=== PATIENT | male | born 1970 | race Caucasian/White ===

== ENCOUNTER 2021-08-11 12:03 | Inpatient (IN) ==
[2021-08-11] MEDS ORDERED: dexAMETHasone**PF** 10 MG/ML VIAL IV ONE (13:11)
[2021-08-11] MEDS ORDERED: HYDROmorphone INJ 1 MG/ML SYRINGE IV STA (13:11)
[2021-08-11] MEDS ORDERED: KETOROLAC 30 MG/ML VIAL IV STA (13:11)
--- NOTE | 2021-08-11 13:18 | Emergency Department Note ---
Impression & Plan Intractable low back pain, Lumbar radiculopathy, Lumbar herniated disc, Spondylolisthesis at L5-S1 level ED Provider Note CHIEF COMPLAINT: Severe low back pain radiating into the right leg x2 months HISTORY OF PRESENT ILLNESS: Patient is a 51-year-old male who presents emergency department for evaluation of radicular low back pain. He has had problems since this summer, things have been markedly worsening however since May. Initially they thought that the pain was related to a hip bursitis, he had an injection with orthopedics which helped slightly, then noted that his symptoms changed. They began to suspect that his pain was related to his back. He had some lumbar spine x-rays done by orthopedics and has been in physical therapy. He did a course of Flexeril and prednisone in early June which gave him no relief. He has also been going to the chiropractor. He finally got an MRI on July 24, which noted a disc bulge at the L5-S1 level and spondylolisthesis of L5 on S1. He was into see orthopedics, physician safety admin assistant with Dr. Gutierres, just this morning, and was told that he needed surgical intervention. Patient is here in severe pain. He notes pain in the bilateral low back, right worse than left and in the right buttock. He has a constant, throbbing pain in his right thigh, and numbness and tingling in his feet, primarily the right. He has a numb sensation into his groin at region and has noted some urinary incontinence. He has not had any stool incontinence. 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 He has tried oxycodone, Cindy, fentanyl lollipops, morphine, Celebrex, Cymbalta and Neurontin all of which he had left over from his prior treatment, which gave him no relief. He also tried a marijuana gummy from a friend. He currently rates his pain an 8/10. He is unable to get comfortable and quite tremulous. REVIEW OF SYSTEMS: Review of systems as per HPI. All other systems reviewed were negative. 10 systems reviewed. PMH: Electronic medical records are reviewed and summarized as above/below. See Problem List. Fully vaccinated against Covid x3. SOCIAL HISTORY: Patient lives at home with his family. Disabled. He does not smoke, uses chewing tobacco. PHYSICAL EXAM: Vital Signs: Reviewed Nurse's notes. CONSTITUTIONAL: Patient is an uncomfortable tremulous 51-year-old male who is awake and alert and in obvious distress due to his stated complaint. There is significant discomfort with position changes. CARDIOVASCULAR: Regular rate and rhythm, with normal S1 and S2, no murmur or gallop or rub is heard. No carotid bruits auscultated. No JVD. Peripheral pulses easily palpable. RESPIRATORY: Breath sounds equal and clear to auscultation without wheezes, rales, or rhonchi heard. Full and equal chest expansion without accessory muscle use or retractions. ABDOMEN: Bowel sounds are present. Abdomen is soft, nontender and nondistended. INTEGUMENTARY: No lesions or rash, normal skin turgor. LYMPH: No lymphadenopathy. SPINE: Examination of the patient's back does not demonstrate any ecchymosis, abrasions or outward signs of trauma. No erythema, increased warmth or induration. Patient has midline discomfort to palpation over the low lumbar spine, and over the PSIS bilaterally. There is no pain over the SI joint or the sciatic notch. He has increased pain with range of motion including rotation and flexion. EXTREMITIES: Leg lengths are symmetrical. Negative logroll bilaterally. Patient has diminished sensation to light touch over the right calf/lower leg, and the right foot. He has weakness with right great toe and ankle dorsiflexion/plantarflexion, 4/5 compared to 5/5 on the left. Negative bilateral straight leg raise testing. Patellar reflexes are 1+ bilaterally. Distal pulses are easily palpable. EMERGENCY DEPARTMENT COURSE: The patient was seen and assessed as above. Old records were reviewed, specifically his prior orthopedic visits and his MRI from 07/24/2021. Pain management was reviewed with the patient. IV lock was initiated. Laboratory studies were collected. I did obtain a Covid swab for possible admission/observation or surgical intervention, this was negative. He was treated with Dilaudid 1 mg IV, Toradol 30 mg IV, Decadron 10 mg IV and Valium 10 mg IV. He was placed on continuous pulse ox monitoring. I did reach out to [facility], and Dr. Gutierres graciously returned my phone call. He is aware of the patient, and has reviewed his MRI. He agrees that the pa myla requires emergent surgical intervention and will admit the patient to his service. This was reviewed with the patient. He was agreeable. Please refer to orthopedic H&P and admission orders for further information. Differential diagnoses entertained included lumbar disc herniation, acute cord compression, cauda equina syndrome, discitis, epidural abscess or hematoma, among others. Past Med/Surg History Medical History CRPS (complex regional pain syndrome) Neck and left upper extremity secondary to crush injury ~20 years ago Surgical History History of cholecystectomy Social History Smoking Status: Never smoker Feels Safe at Home: Yes Allergies Allergies Allergy/AdvReac Type Severity Reaction Status Date / Time No Known Allergies Allergy Verified 08/11/21 15:24 Home Meds Previous Rx's Medication Instructions Recorded cyclobenzaprine 10 mg tablet 10 mg PO TID PRN #15 tab 06/05/21 Results & Data (ED) Vital Signs Vital Signs - 24 hr 08/11/21 12:19 08/11/21 15:11 Temperature 36.5 C Temperature Source Temporal Artery Scan Pulse Rate 114 H 82 Pulse Rate [Right Finger] 83 Pulse Rhythm Regular Regular Pulse Rhythm [Right Finger] Regular Pulse Strength Normal Pulse Strength [Right Finger] Normal Respiratory Rate 20 16 Respiratory Effort / Characteristics Non-Labored Spontaneous Non-Labored Spontaneous Respiratory Depth Normal Normal Respiratory Pattern Regular Regular Blood Pressure 151/107 H Blood Pressure [Left Arm] 124/80 Blood Pressure Mean 121 Blood Pressure Mean [Left Arm] 94 Blood Pressure Position Sitting Blood Pressure Position [Left Arm] Lying Pulse Oximetry 99 96 Oxygen Delivery Method Room Air Room Air Sepsis Recent Fever Within 48 Hours No Sepsis New/Unexplained Change in Mental Status N/A Sepsis Action Taken by Nursing No Action Required Home Medications Current Medication List: was personally reviewed by me Laboratory Data Attestation: I reviewed the patient's lab results. Administered Medications Discontinued Medications Dexamethasone Sodium Phosphate (DexamethasonePf 10 Mg/Ml Vial) 10 mg IV NOW ONE Stop: 08/11/21 13:12 Last Admin: 08/11/21 15:02 Dose: 10 mg Documented by: [id number] Diazepam (Diazepam 5 Mg/Ml Inj 10ml Vial) 10 mg IV NOW STA Stop: 08/11/21 13:12 Last Admin: 08/11/21 15:11 Dose: 10 mg Documented by: [id number] Hydromorphone HCl (Hydromorphone Inj 1 Mg/Ml Syringe) 1 mg IV NOW STA Stop: 08/11/21 13:12 Last Admin: 08/11/21 15:03 Dose: 1 mg Documented by: [id number] Ketorolac Tromethamine (Ketorolac 30 Mg/Ml Vial) 30 mg IV NOW STA Stop: 08/11/21 13:12 Last Admin: 08/11/21 15:02 Dose: 30 mg Documented by: [id number] Prescription Drug Monitoring [place] Drug Monitoring Program reviewed and no issues identified Discharge Plan Visit Data Chief Complaint: Back Injury/Pain Stated Complaint: SEVERE BACK/HIP PAIN,NUMBNESS,URINATION PROBS ED Provider: Artur Haider ED Midlevel Provider: Hernan Lopez Discharge Problem: Intractable low back pain, Lumbar radiculopathy, Lumbar herniated disc, Spondylolisthesis at L5-S1 level Patient Disposition: Admitted As Inpatient Prescriptions Prescriptions: No Action cyclobenzaprine 10 mg tablet 10 mg PO TID PRN (Reason: spasms) Qty: 15 RF: 0 Referrals Referrals: PCP,NO [Primary Care Provider] -
[2021-08-11] MEDS ORDERED: ONDANSETRON INJ 2 MG/ML 2 ML VIAL IV PRN (20:47)
[2021-08-11] MEDS ORDERED: SOD PHOSPHATE/SOD BIPHOSPHATE ENEMA 132 ML BTL PR PRN (20:47)
[2021-08-11] MEDS ORDERED: NALOXONE HCL 0.4 MG/1 ML VIAL/CARP IV PRN (20:47)
[2021-08-11] MEDS ORDERED: PROMETHAZINE HCL 12.5 MG in SODIUM CHLORIDE 0.9% 50 ML IV PRN (20:47)
[2021-08-11] MEDS ORDERED: METOCLOPRAMIDE HCL INJ 5 MG/ML 2 ML VIAL IV PRN (20:47)
[2021-08-11] MEDS ORDERED: ONDANSETRON 4 MG OD TAB PO PRN (20:47)
[2021-08-11] MEDS ORDERED: hydrOXYzine HCl 25 MG TAB PO PRN (20:47)
[2021-08-11] MEDS ORDERED: ACETAMINOPHEN 500 MG TAB PO PRN (20:47)
[2021-08-11] MEDS ORDERED: MAGNESIUM HYDROXIDE SUSP 30 ML UDC PO PRN (20:47)
[2021-08-11] MEDS ORDERED: HYDROmorphone INJ 0.5 MG/0.5 ML SYR IV PRN (20:47)
[2021-08-11] MEDS ORDERED: diphenhydrAMINE Capsule 25 MG CAP PO PRN (20:47)
[2021-08-11] MEDS ORDERED: ALUMINUM/MAGNESIUM SUSP 30 ML UDC PO PRN (20:47)
[2021-08-11] MEDS ORDERED: LORazepam 0.5 MG/1 ML VIAL IV PRN (20:47)
[2021-08-11] MEDS ORDERED: traMADol HCL 50 MG TABLET PO PRN (20:47)
[2021-08-11] MEDS: HYDROmorphone INJ 1 MG/ML SYRINGE IV PRN (21:07)
[2021-08-11] MEDS: LACTATED RINGER'S 1,000 ML IV SCH (21:07)
[2021-08-11] MEDS: LORazepam 0.5 MG TAB PO PRN (23:57)
[2021-08-12] MEDS: HYDROmorphone INJ 1 MG/ML SYRINGE IV PRN ×5 (00:09→22:23)
[2021-08-12] MEDS ORDERED: ceFAZolin 2000MG 2,000 MG/15 ML SYR IV SCH (06:00)
--- NOTE | 2021-08-12 08:06 | Consultation Report ---
DATE OF ADMISSION: 08/12/2021. CHIEF COMPLAINT: Severe back pain. HISTORY OF PRESENT ILLNESS: This is a 51-year-old male with past medical history significant for chronic pain, presents with severe back pain. The patient started noticing back pain since last March There is no history of injury or fall. Since last May, the pain got worse. In the last few days, it got significantly worse and he is having ambulatory dysfunction, he is ambulating slowly. He had an MRI scan done as outpatient showing disk bulge at L5-S1 and spondylolisthesis of L5 on S1 and he was admitted for possible surgical intervention. The patient is having significant pain, the pain is radiating to bilateral low back, right worse than left, and the right buttock region and he has numbness and tingling in his feet. Denies any incontinence of bowel or bladder. Denies any chest pain, no shortness of breath, no cough, no fevers, no headache, no blurred visions, no earache, no runny nose, no sore throat. Appetite is okay. No nausea, no abdominal pain. Normal bowel and bladder movements. No swelling in the legs. ALLERGIES: No known drug allergies. PAST MEDICAL HISTORY: As mentioned above. PAST SURGICAL HISTORY: Cholecystectomy in 2018. MEDICATIONS: The patient takes cyclobenzaprine 10 mg p.o. t.i.d. p.r.n. SOCIAL HISTORY: Remote smoking history. Alcohol, drinks 3 days a week,not many, like 2 or 3 beers when he drinks. He is . REVIEW OF SYSTEMS: As per HPI. Rest of review of systems is negative. PHYSICAL EXAMINATION: GENERAL: The patient is of moderate build, not in acute distress. VITAL SIGNS: Temperature 36.5, pulse 78, respiratory rate 20, blood pressure 168/86, oxygen 99% on room air. HEENT: Atraumatic. No facial droop. Speech clear. NECK: No JVD. No neck masses. CARDIOVASCULAR: S1 and S2 heard. Regular rate and rhythm. No murmur, no gallop. RESPIRATORY SYSTEM: Normal AP diameter. No accessory muscle use. No wheezing, no crackles. ABDOMEN: Soft, bowel sounds present, nontender, no distention. CENTRAL NERVOUS SYSTEM: Cranial nerves II-XII grossly intact, nonfocal.Moves lower extremity. Sensations intact in lower extremity. EXTREMITIES: No edema, no erythema. LABORATORY DATA: Unavailable. ASSESSMENT AND PLAN: This is a 51-year-old male who presents with severe back pain. 1. Severe back pain: Disk bulge, possible surgical procedure. Ambulatory dysfunction. Management as per orthopedics. 2. Chronic pain: Pain control. 3. Deep venous thrombosis prophylaxis and disposition as per orthopedics. Job ID: [id number] MTDD
--- NOTE | 2021-08-12 08:34 | History & Physical Report ---
Date of Service August 12, 2021 Assessment & Plan (1) Spondylolisthesis at L5-S1 level: Plan: Assessment grade 1+ spondylolisthesis L5-S1 with obvious bilateral pars defect and herniated was pulposis on the right. Patient has marked decline in status unresponsive to nonoperative care and in light of his severe limitations in pain and recommending urgent lumbar decompression and fusion L5-S1. Risk benefits pros cons alternatives were outlined in detail. Patient understands agrees. Try to surgery range performed as soon as possible. Admission and Anticipated Discharge Date Admission Date: August 11, 2021 History of Present Illness Chief Complaint: Severe back and bilateral leg pain Primary Care Provider: NO PCP This is a 51-year-old male that is been struggling for several months with significant bilateral buttock and leg pain right greater than left. He undergone extensive work-up regarding hip pathology this was determined to be benign. He ultimately underwent an MRI of the lumbar spine does demonstrate evidence of spondylolisthesis L5-S1 with disc herniation on the right contributing to severe neural compression and radiculopathy. He is quite uncomfortable. Narcotic pain medication providing little to no relief. No improvement physical therapy. He cannot complete his activities of daily living: For short distances secondary to severe radiculopathy. Allergies Allergy/AdvReac Type Severity Reaction Status Date / Time No Known Allergies Allergy Verified 08/11/21 15:24 Home Medications Medication Instructions Recorded Confirmed Type cyclobenzaprine 10 mg tablet 10 mg PO TID PRN #15 tab 06/05/21 08/11/21 Rx Past Med/Surg History Medical History CRPS (complex regional pain syndrome) Neck and left upper extremity secondary to crush injury ~20 years ago Surgical History History of cholecystectomy Social History Smoking Status: Never smoker Hx Alcohol Use: Yes Alcohol type: beer Hx Substance Use: No Preferred Language: Vietnamese Communication Ability: Effective Parimutuel Ticket Cashier Required: No Beliefs That Will Affect Care: None Current Living Situation: Spouse Other Information That Helps Us Care for You: No Feels Safe at Home: Yes Safety Concerns: Feels Safe At This Time Assistive Devices: Contacts Physical Exam Physical Exam: On exam patient is most comfortable lying in bed with his feet propped up. Demonstrates breakaway weakness to bilateral extensor pollicis longus but 5/5 quadriceps and plantar flexion. Severe tension signs with straight leg raising on the right with a positive Lasegue's maneuver. Deep tendon flexes diminished. Results & Data ([facility]) Vital Signs (Past 12 Hours) Vital Signs Temp Pulse Resp BP Pulse Ox 08/12/21 07:22 36.8 C 92 H 16 150/72 H 94 Code Status & VTE Plan VTE Prophylaxis Plan VTE Prophylaxis will be ordered: Yes
[2021-08-12] MEDS: LACTATED RINGER'S 1,000 ML IV SCH (10:40)
[2021-08-12] MEDS: ACETAMINOPHEN 1,000 MG/100 ML VIAL IV PRN (12:46)
--- NOTE | 2021-08-12 13:39 | Hospitalist Progress Note ---
Date of Service August 12, 2021 Assessment & Plan (1) Intractable low back pain: (2) Lumbar radiculopathy: (3) Spondylolisthesis at L5-S1 level: Plan: This is a 51-year-old male who presents with severe back pain. Started in March. There is no history of trauma. Since last May, the pain got worse. In the last few days, it got significantly worse and he is having ambulatory dysfunction. Pain is radiating to bilateral low back, right worse than left, and the right buttock region and he has numbness and tingling in his feet. Denies any incontinence of bowel or bladder. MRI scan done as outpatient showing disk bulge at L5-S1 and spondylolisthesis of L5 on S1. 1. Severe back pain: Ambulatory dysfunction. Disk bulge. Management as per orthopedics. Possible surgical procedure. 2. Chronic pain: Pain control. DVT prophylaxis and disposition as per orthopedics. Admission and Anticipated Discharge Date Admission Date: August 11, 2021 Subjective Patient seen for back pain Currently laying in bed, in no acute distress, however reports difficulty with any movement. Denies any bowel or bladder incontinence. Denies fevers chills. He is in significant pain, and awaiting surgery. Patient discussed this with Dr. Gutierres earlier today. Patient denies having any other medical comorbidities, such as heart, or lung disease, diabetes or hypertension. Patient reports being a non-smoker. Review of Systems Review of Systems: All systems reviewed & are unremarkable except as noted in Subjective Physical Exam Physical Exam: GENERAL: The patient is of moderate build, not in acute distress. HEENT: Atraumatic. No facial droop. Speech clear. NECK: No JVD. No neck masses. CARDIOVASCULAR: S1 and S2 heard. Regular rate and rhythm. No murmur, no gallop. RESPIRATORY: Normal AP diameter. No accessory muscle use. No wheezing, no crackles. ABDOMEN: Soft, bowel sounds present, nontender, no distention. NEURO:Alert oriented answering questions appropriately, no facial asymmetry, speech fluent. Moves lower extremities. Sensations intact in lower extremities. EXTREMITIES: No edema, no erythema. SKIN: warm, dry, no rashes Results & Data Results & Data ([facility]) Vital Signs (Past 12 Hours) Vital Signs Temp Pulse Resp BP Pulse Ox 08/12/21 07:22 36.8 C 92 H 16 150/72 H 94 Diagnostic Findings Lumbar MRI (07/24/2021) IMPRESSION: 1. Bilateral pars defects at L5 with grade 1/4 spondylolisthesis of L5 on S1. There is bulging of the annulus at this level producing asymmetric encroachment upon the right neural foramen when compared to the left and evidence for impingement upon the right L5 nerve root within the neural foramen. 2. Hypertrophic facet joint disease is also seen at L3-4 and L4-5. Medications Administered Current Inpatient Medications Acetaminophen (Acetaminophen 500 Mg Tab) 1,000 mg PO Q8H PRN PRN Reason: MILD Pain Scale 1,2,3 & Pre PT Stop: 09/10/21 20:46 Al Hydrox/Mg Hydrox/Simethicone (Aluminum/Magnesium Susp 30 Ml Udc) 30 ml PO Q6H PRN PRN Reason: Dyspepsia Stop: 09/10/21 20:46 Bisacodyl (Bisacodyl 10 Mg Supp) 10 mg CA DAILY PRN PRN Reason: Constipation Stop: 09/12/21 14:37 Diphenhydramine HCl (Diphenhydramine Capsule 25 Mg Cap) 25 mg PO Q6H PRN PRN Reason: Allergic Rhinitis/Insomnia Stop: 09/10/21 20:46 Hydromorphone HCl (Hydromorphone Inj 0.5 Mg/0.5 Ml Syr) 0.5 mg IV Q3H PRN PRN Reason: MOD pain (scale 4-6) & Pre PT Stop: 08/25/21 20:46 Hydromorphone HCl (Hydromorphone Inj 1 Mg/Ml Syringe) 1 mg IV Q3H PRN PRN Reason: severe pain (scale 7-10) Stop: 08/25/21 20:46 Last Admin: 08/12/21 10:52 Dose: 1 mg Documented by: Hydroxyzine HCl (Hydroxyzine Hcl 25 Mg Tab) 25 mg PO Q8H PRN PRN Reason: Anxiety Stop: 09/10/21 20:46 Cefazolin Sodium (Ancef 2000mg) 2,000 mg in 15 mls @ 3.75 mls/min IV PREOP JESÚS; Protocol Stop: 08/13/21 05:59 Last Admin: 08/12/21 06:08 Dose: 3.75 mls/min Documented by: Lactated Ringer's (Lr) 1,000 mls @ 75 mls/hr IV .[id number] JESÚS Stop: 09/10/21 20:46 Last Infusion: 08/12/21 12:47 Dose: 0 mls/hr Documented by: Acetaminophen (Ofirmev) 1,000 mg in 100 mls @ 400 mls/hr IV Q8H PRN PRN Reason: Pain Rating 1-3 & Pre PT Stop: 08/14/21 20:46 Last Admin: 08/12/21 12:46 Dose: 400 mls/hr Documented by: Lorazepam (Ativan) 0.5 mg in 1 mls @ 1 mls/min IV Q8H PRN PRN Reason: Sedation/Anxiety Stop: 09/10/21 20:46 Promethazine HCl 12.5 mg/ (Sodium Chloride) 50.5 mls @ 202 mls/hr IV Q6H PRN PRN Reason: Nausea &/or Vomiting Stop: 09/10/21 20:46 Lorazepam (Lorazepam 0.5 Mg Tab) 0.5 mg PO Q8H PRN PRN Reason: sedation/anxiety Stop: 09/10/21 20:46 Last Admin: 08/11/21 23:57 Dose: 0.5 mg Documented by: Magnesium Hydroxide (Magnesium Hydroxide Susp 30 Ml Udc) 30 ml PO Q24H PRN PRN Reason: Constipation Stop: 09/10/21 20:46 Metoclopramide HCl (Metoclopramide Hcl Inj 5 Mg/Ml 2 Ml Vial) 10 mg IV Q6H PRN PRN Reason: Nausea &/or Vomiting Stop: 09/10/21 20:46 Naloxone HCl (Naloxone Hcl 0.4 Mg/1 Ml Vial/Carp) 0.1 mg IV Q5M PRN PRN Reason: Oversedation/respiratory dep Stop: 09/10/21 20:46 Ondansetron HCl (Ondansetron Inj 2 Mg/Ml 2 Ml Vial) 4 mg IV Q6H PRN PRN Reason: Nausea &/or Vomiting Stop: 09/10/21 20:46 Ondansetron HCl (Ondansetron 4 Mg Od Tab) 4 mg PO Q6H PRN PRN Reason: Nausea Stop: 09/10/21 20:46 Oxycodone HCl (Oxycodone Hcl Ir 5 Mg Tab (Immediate Release)) 5 - 10 mg PO Q4H PRN PRN Reason: mod to severe pain Stop: 08/25/21 20:46 Sodium Biphosphate/Sodium Phosphate (Sod Phosphate/Sod Biphosphate Enema 132 Ml Btl) 132 ml CA ONE PRN PRN Reason: Constipation Stop: 09/10/21 20:46 Tramadol HCl (Tramadol Hcl 50 Mg Tablet) 50 - 100 mg PO Q4H PRN PRN Reason: Moderate-Severe pain & Pre PT Stop: 09/10/21 20:46
[2021-08-12] MEDS ORDERED: KETOROLAC TROMETHAMINE 15 MG/ML VIAL IV ONE (17:53)
[2021-08-13 05:44] LABS: Hematocrit (blood only) 41.8 % (42-52); Hemoglobin 14.3 g/dL (14.0-18.0); Mean Corpuscular Hemoglobin 30.4 pg (25-34); Mean Corpuscular Hgb Conc 34.2 g/dL (32-36); Mean Corpuscular Volume 88.9 fL (80-100); Mean Platelet Volume 10.5 fL (7.4-10.4); Platelet Count 189 K/uL (130-400); RDW Standard Deviation 41.8 fL (36.4-46.3); White Blood Count 14.13 K/uL (4.8-10.8)
[2021-08-13 06:17] LABS: BUN Creatinine Ratio 16.6 (10-20); Calcium 8.5 mg/dl (8.5-10.1); Creatinine Clr Calc Pharmacy 97.2 ml/min; Est GFR (African American) 89.9 ml/min; Est GFR (Non-African American) 77.6 ml/min; Phosphorus 2.8 mg/dl (2.5-4.9); Potassium 3.7 mmol/L (3.5-5.1)
[2021-08-13 06:44] LABS: Magnesium 2.2 mg/dl (1.8-2.4)
[2021-08-13] MEDS: HYDROmorphone INJ 1 MG/ML SYRINGE IV PRN ×2 (07:34→21:43)
--- NOTE | 2021-08-13 08:14 | Hospitalist Progress Note ---
Date of Service August 13, 2021 Assessment & Plan (1) Intractable low back pain: (2) Lumbar radiculopathy: (3) Spondylolisthesis at L5-S1 level: Plan: This is a 51-year-old male who presents with severe back pain. Started in March. There is no history of trauma. Since last May, the pain got worse. In the last few days, it got significantly worse and he is having ambulatory dysfunction. Pain is radiating to bilateral low back, right worse than left, and the right buttock region and he has numbness and tingling in his feet. Denies any incontinence of bowel or bladder. MRI scan done as outpatient showing disk bulge at L5-S1 and spondylolisthesis of L5 on S1. 1. Severe back pain: Ambulatory dysfunction. Disk bulge. Management as per orthopedics. Possible surgical procedure. Patient continues to have severe back pain, difficult to manage with medications. Discussed with orthopedics, any needed preop evaluation, as we do not have PCP records. Routine ECG ordered. 2. Chronic pain: Pain control. DVT prophylaxis and disposition as per orthopedics. Admission and Anticipated Discharge Date Admission Date: August 11, 2021 Subjective Patient seen for back pain Currently laying in bed, in no acute distress, however reports difficulty with any movement. Denies any bowel or bladder incontinence. Denies fevers chills. He is in significant pain, and awaiting poss.surgery. Patient denies having any other medical comorbidities, such as heart, or lung disease, diabetes or hypertension. Patient reports being a non-smoker. Discussed with Bette, from Ortho, any needed preop evaluation as we do not have PCP records. Routine ECG ordered. Review of Systems Review of Systems: All systems reviewed & are unremarkable except as noted in Subjective Physical Exam Physical Exam: GENERAL: The patient is of moderate build, not in acute distress. HEENT: Atraumatic. No facial droop. Speech clear. NECK: No JVD. No neck masses. CARDIOVASCULAR: S1 and S2 heard. Regular rate and rhythm. No murmur, no gallop. RESPIRATORY: Normal AP diameter. No accessory muscle use. No wheezing, no crackles. ABDOMEN: Soft, bowel sounds present, nontender, no distention. NEURO:Alert oriented answering questions appropriately, no facial asymmetry, speech fluent. Gait not assessed. Significant back/leg pain with any movement, exam limited. EXTREMITIES: No edema, no erythema. SKIN: warm, dry, no rashes Results & Data Results & Data ([facility]) Vital Signs (Past 12 Hours) Vital Signs Temp Pulse Resp BP Pulse Ox 08/13/21 07:27 36.5 C 79 16 130/77 97 08/12/21 22:37 36.8 C 71 16 155/87 H 95 Laboratory Results 08/13/21 08/13/21 Range/Units 05:30 05:30 WBC 14.13 H (4.8-10.8) K/uL RBC 4.70 (4.7-6.1) M/uL Hgb 14.3 (14.0-18.0) g/dL Hct 41.8 L (42-52) % MCV 88.9 (80-100) fL MCH 30.4 (25-34) pg MCHC 34.2 (32-36) g/dL RDW Std Deviation 41.8 (36.4-46.3) fL RDW Coeff of Christopher 13.0 (11.5-14.5) % Plt Count 189 (130-400) K/uL MPV 10.5 H (7.4-10.4) fL Sodium 140 (136-145) mmol/L Potassium 3.7 (3.5-5.1) mmol/L Chloride 108 H (98-107) mmol/L Carbon Dioxide 27 (21-32) mmol/L Anion Gap 5.0 (3-11) BUN 18 (7-18) mg/dl Creatinine 1.11 (0.6-1.4) mg/dl Est Cr Clr Drug Dosing 97.2 ml/min Est GFR ( Amer) 89.9 ml/min Est GFR (Non-Af Amer) 77.6 ml/min BUN/Creatinine Ratio 16.6 (10-20) Glucose 194 H (70-99) mg/dl Calcium 8.5 (8.5-10.1) mg/dl Phosphorus 2.8 (2.5-4.9) mg/dl Magnesium 2.2 (1.8-2.4) mg/dl Specimen Hemolysis Medications Administered Current Inpatient Medications Acetaminophen (Acetaminophen 500 Mg Tab) 1,000 mg PO Q8H PRN PRN Reason: MILD Pain Scale 1,2,3 & Pre PT Stop: 09/10/21 20:46 Al Hydrox/Mg Hydrox/Simethicone (Aluminum/Magnesium Susp 30 Ml Udc) 30 ml PO Q6H PRN PRN Reason: Dyspepsia Stop: 09/10/21 20:46 Bisacodyl (Bisacodyl 10 Mg Supp) 10 mg AK DAILY PRN PRN Reason: Constipation Stop: 09/12/21 14:37 Diphenhydramine HCl (Diphenhydramine Capsule 25 Mg Cap) 25 mg PO Q6H PRN PRN Reason: Allergic Rhinitis/Insomnia Stop: 09/10/21 20:46 Hydromorphone HCl (Hydromorphone Inj 0.5 Mg/0.5 Ml Syr) 0.5 mg IV Q3H PRN PRN Reason: MOD pain (scale 4-6) & Pre PT Stop: 08/25/21 20:46 Hydromorphone HCl (Hydromorphone Inj 1 Mg/Ml Syringe) 1 mg IV Q3H PRN PRN Reason: severe pain (scale 7-10) Stop: 08/25/21 20:46 Last Admin: 08/13/21 07:34 Dose: 1 mg Documented by: Hydroxyzine HCl (Hydroxyzine Hcl 25 Mg Tab) 25 mg PO Q8H PRN PRN Reason: Anxiety Stop: 09/10/21 20:46 Acetaminophen (Ofirmev) 1,000 mg in 100 mls @ 400 mls/hr IV Q8H PRN PRN Reason: Pain Rating 1-3 & Pre PT Stop: 08/14/21 20:46 Last Infusion: 08/12/21 13:01 Dose: Infused Documented by: Lorazepam (Ativan) 0.5 mg in 1 mls @ 1 mls/min IV Q8H PRN PRN Reason: Sedation/Anxiety Stop: 09/10/21 20:46 Promethazine HCl 12.5 mg/ (Sodium Chloride) 50.5 mls @ 202 mls/hr IV Q6H PRN PRN Reason: Nausea &/or Vomiting Stop: 09/10/21 20:46 Lorazepam (Lorazepam 0.5 Mg Tab) 0.5 mg PO Q8H PRN PRN Reason: sedation/anxiety Stop: 09/10/21 20:46 Last Admin: 08/11/21 23:57 Dose: 0.5 mg Documented by: Magnesium Hydroxide (Magnesium Hydroxide Susp 30 Ml Udc) 30 ml PO Q24H PRN PRN Reason: Constipation Stop: 09/10/21 20:46 Metoclopramide HCl (Metoclopramide Hcl Inj 5 Mg/Ml 2 Ml Vial) 10 mg IV Q6H PRN PRN Reason: Nausea &/or Vomiting Stop: 09/10/21 20:46 Naloxone HCl (Naloxone Hcl 0.4 Mg/1 Ml Vial/Carp) 0.1 mg IV Q5M PRN PRN Reason: Oversedation/respiratory dep Stop: 09/10/21 20:46 Ondansetron HCl (Ondansetron Inj 2 Mg/Ml 2 Ml Vial) 4 mg IV Q6H PRN PRN Reason: Nausea &/or Vomiting Stop: 09/10/21 20:46 Ondansetron HCl (Ondansetron 4 Mg Od Tab) 4 mg PO Q6H PRN PRN Reason: Nausea Stop: 09/10/21 20:46 Oxycodone HCl (Oxycodone Hcl Ir 5 Mg Tab (Immediate Release)) 5 - 10 mg PO Q4H PRN PRN Reason: mod to severe pain Stop: 08/25/21 20:46 Sodium Biphosphate/Sodium Phosphate (Sod Phosphate/Sod Biphosphate Enema 132 Ml Btl) 132 ml AK ONE PRN PRN Reason: Constipation Stop: 09/10/21 20:46 Tramadol HCl (Tramadol Hcl 50 Mg Tablet) 50 - 100 mg PO Q4H PRN PRN Reason: Moderate-Severe pain & Pre PT Stop: 09/10/21 20:46
--- NOTE | 2021-08-13 08:46 | Orthopedic Progress Note ---
Date of Service August 13, 2021 Assessment & Plan (1) Spondylolisthesis at L5-S1 level: Plan: We will plan for surgical intervention by Dr. Gutierres at the L5-S1 level tomorrow. N.p.o. after midnight. All questions have been answered in detail with the patient. Admission and Anticipated Discharge Date Admission Date: August 11, 2021 Subjective Patient continues to struggle with lower back pain rating down the right greater than left lower extremity. Numbness in the left foot. He is trialed and failed conservative treatment for the past 5 months. Planning for tentative surgical intervention tomorrow. Review of Systems Review of Systems: All systems reviewed & are unremarkable except as noted in HPI & below Physical Exam Physical Exam: Unchanged alert and oriented x3 Positive Lasegue's maneuver on the right [place]aka[place] weakness right lower extremity Results & Data ([facility]) Vital Signs (Past 12 Hours) Vital Signs Temp Pulse Resp BP Pulse Ox 08/13/21 07:27 36.5 C 79 16 130/77 97 08/12/21 22:37 36.8 C 71 16 155/87 H 95
[2021-08-13] MEDS ORDERED: ceFAZolin 2000MG 2,000 MG/15 ML SYR IV ONE (08:47)
[2021-08-13] MEDS: oxyCODONE HCL IR 5 MG TAB (IMMEDIATE RELEASE) PO PRN ×2 (13:26→18:02)
[2021-08-13] MEDS ORDERED: bisacodyL 10 MG SUPP PR PRN (14:38)
--- NOTE | 2021-08-13 22:09 | Electrocardiogram Report ---
Test Reason : Blood Pressure : / mmHG Vent. Rate : 074 BPM Atrial Rate : 074 BPM P-R Int : 138 ms QRS Dur : 078 ms QT Int : 378 ms P-R-T Axes : 064 -23 020 degrees QTc Int : 419 ms Normal sinus rhythm Nonspecific T wave abnormality Abnormal ECG No previous ECGs available Confirmed by Adalberto Cramer ([id number]) on 08/13/2021 10:08:40 PM Referred By: REFERRED SELF Confirmed By:Adalberto Cramer
[2021-08-13] MEDS: LORazepam 0.5 MG TAB PO PRN (22:52)
[2021-08-14 06:37] LABS: Hematocrit (blood only) 43.8 % (42-52); Hemoglobin 14.8 g/dL (14.0-18.0); Mean Corpuscular Hemoglobin 30.3 pg (25-34); Mean Corpuscular Hgb Conc 33.8 g/dL (32-36); Mean Corpuscular Volume 89.8 fL (80-100); Mean Platelet Volume 10.6 fL (7.4-10.4); Platelet Count 164 K/uL (130-400); RDW Standard Deviation 42.2 fL (36.4-46.3); Red Blood Count 4.88 M/uL (4.7-6.1); White Blood Count 8.52 K/uL (4.8-10.8)
[2021-08-14 06:57] LABS: BUN Creatinine Ratio 13.5 (10-20); Calcium 7.9 mg/dl (8.5-10.1); Creatinine Clr Calc Pharmacy 104.8 ml/min; Est GFR (African American) 98.4 ml/min; Est GFR (Non-African American) 84.9 ml/min
[2021-08-14 07:08] LABS: Potassium 3.8 mmol/L (3.5-5.1)
[2021-08-14] MEDS: oxyCODONE HCL IR 5 MG TAB (IMMEDIATE RELEASE) PO PRN ×2 (07:37→15:41)
--- NOTE | 2021-08-14 07:51 | History & Physical Bridge Note ---
Date of Service August 14, 2021 History & Physical Bridge Note I have examined the patient, reviewed the History & Physical and in the interval since the performance of the History & Physical I have noted the following changes of clinical significance: Patient continues to demonstrate weakness to right greater than left lower extremity with progressive foot drop. Narcotic medications providing little to no relief. He continues to have to prop his legs over the top of his bed mimicking an inversion table to obtain any degree of comfort. In the presence of incapacitating pain and progressive neuro deficit I am recommending emergent decompression fusion L5-S1.
--- NOTE | 2021-08-14 08:42 | Hospitalist Progress Note ---
Date of Service August 14, 2021 Assessment & Plan Admission and Anticipated Discharge Date Admission Date: August 11, 2021 Results & Data Results & Data ([facility]) Vital Signs (Past 12 Hours) Vital Signs Temp Pulse Resp BP Pulse Ox 08/14/21 07:16 36.6 C 63 20 120/75 100 08/13/21 22:39 36.7 C 75 18 133/87 98 Laboratory Results 08/14/21 08/14/21 Range/Units 06:15 06:15 WBC 8.52 (4.8-10.8) K/uL RBC 4.88 (4.7-6.1) M/uL Hgb 14.8 (14.0-18.0) g/dL Hct 43.8 (42-52) % MCV 89.8 (80-100) fL MCH 30.3 (25-34) pg MCHC 33.8 (32-36) g/dL RDW Std Deviation 42.2 (36.4-46.3) fL RDW Coeff of Christopher 13.0 (11.5-14.5) % Plt Count 164 (130-400) K/uL MPV 10.6 H (7.4-10.4) fL Sodium 141 (136-145) mmol/L Potassium 3.8 (3.5-5.1) mmol/L Chloride 109 H (98-107) mmol/L Carbon Dioxide 28 (21-32) mmol/L Anion Gap 4.0 (3-11) BUN 14 (7-18) mg/dl Creatinine 1.03 (0.6-1.4) mg/dl Est Cr Clr Drug Dosing 104.8 ml/min Est GFR ( Amer) 98.4 ml/min Est GFR (Non-Af Amer) 84.9 ml/min BUN/Creatinine Ratio 13.5 (10-20) Glucose 109 H (70-99) mg/dl Calcium 7.9 L (8.5-10.1) mg/dl Medications Administered Current Inpatient Medications Acetaminophen (Acetaminophen 500 Mg Tab) 1,000 mg PO Q8H PRN PRN Reason: MILD Pain Scale 1,2,3 & Pre PT Stop: 09/10/21 20:46 Last Admin: 08/13/21 13:26 Dose: 1,000 mg Documented by: Al Hydrox/Mg Hydrox/Simethicone (Aluminum/Magnesium Susp 30 Ml Udc) 30 ml PO Q6H PRN PRN Reason: Dyspepsia Stop: 09/10/21 20:46 Bisacodyl (Bisacodyl 10 Mg Supp) 10 mg [place] DAILY PRN PRN Reason: Constipation Stop: 09/12/21 14:37 Diphenhydramine HCl (Diphenhydramine Capsule 25 Mg Cap) 25 mg PO Q6H PRN PRN Reason: Allergic Rhinitis/Insomnia Stop: 09/10/21 20:46 Hydromorphone HCl (Hydromorphone Inj 0.5 Mg/0.5 Ml Syr) 0.5 mg IV Q3H PRN PRN Reason: MOD pain (scale 4-6) & Pre PT Stop: 08/25/21 20:46 Hydromorphone HCl (Hydromorphone Inj 1 Mg/Ml Syringe) 1 mg IV Q3H PRN PRN Reason: severe pain (scale 7-10) Stop: 08/25/21 20:46 Last Admin: 08/13/21 21:43 Dose: 1 mg Documented by: Hydroxyzine HCl (Hydroxyzine Hcl 25 Mg Tab) 25 mg PO Q8H PRN PRN Reason: Anxiety Stop: 09/10/21 20:46 Acetaminophen (Ofirmev) 1,000 mg in 100 mls @ 400 mls/hr IV Q8H PRN PRN Reason: Pain Rating 1-3 & Pre PT Stop: 08/14/21 20:46 Last Infusion: 08/12/21 13:01 Dose: Infused Documented by: Lorazepam (Ativan) 0.5 mg in 1 mls @ 1 mls/min IV Q8H PRN PRN Reason: Sedation/Anxiety Stop: 09/10/21 20:46 Promethazine HCl 12.5 mg/ (Sodium Chloride) 50.5 mls @ 202 mls/hr IV Q6H PRN PRN Reason: Nausea &/or Vomiting Stop: 09/10/21 20:46 Lorazepam (Lorazepam 0.5 Mg Tab) 0.5 mg PO Q8H PRN PRN Reason: sedation/anxiety Stop: 09/10/21 20:46 Last Admin: 08/13/21 22:52 Dose: 0.5 mg Documented by: Magnesium Hydroxide (Magnesium Hydroxide Susp 30 Ml Udc) 30 ml PO Q24H PRN PRN Reason: Constipation Stop: 09/10/21 20:46 Metoclopramide HCl (Metoclopramide Hcl Inj 5 Mg/Ml 2 Ml Vial) 10 mg IV Q6H PRN PRN Reason: Nausea &/or Vomiting Stop: 09/10/21 20:46 Naloxone HCl (Naloxone Hcl 0.4 Mg/1 Ml Vial/Carp) 0.1 mg IV Q5M PRN PRN Reason: Oversedation/respiratory dep Stop: 09/10/21 20:46 Ondansetron HCl (Ondansetron Inj 2 Mg/Ml 2 Ml Vial) 4 mg IV Q6H PRN PRN Reason: Nausea &/or Vomiting Stop: 09/10/21 20:46 Ondansetron HCl (Ondansetron 4 Mg Od Tab) 4 mg PO Q6H PRN PRN Reason: Nausea Stop: 09/10/21 20:46 Oxycodone HCl (Oxycodone Hcl Ir 5 Mg Tab (Immediate Release)) 5 - 10 mg PO Q4H PRN PRN Reason: mod to severe pain Stop: 08/25/21 20:46 Last Admin: 08/14/21 07:37 Dose: 10 mg Documented by: Sodium Biphosphate/Sodium Phosphate (Sod Phosphate/Sod Biphosphate Enema 132 Ml Btl) 132 ml [place] ONE PRN PRN Reason: Constipation Stop: 09/10/21 20:46 Tramadol HCl (Tramadol Hcl 50 Mg Tablet) 50 - 100 mg PO Q4H PRN PRN Reason: Moderate-Severe pain & Pre PT Stop: 09/10/21 20:46
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
[2021-08-14] MEDS ORDERED: ceFAZolin 2000MG 2,000 MG/15 ML SYR IV ONE (10:41)
[2021-08-14] MEDS ORDERED: BUPIVACAINE 0.5 % 5 MG/1 ML MPF 30ML VIAL ONE (10:43)
[2021-08-14] MEDS ORDERED: EPINEPHrine INJ 1 MG/ML AMP ONE (10:43)
[2021-08-14] MEDS ORDERED: ceFAZolin 2,000 MG/15 ML IV PUSH IV ONE (10:45)
[2021-08-14] MEDS ORDERED: MIDAZOLAM HCL 1 MG/ML 2ML VIAL ONE (10:53)
[2021-08-14] MEDS ORDERED: fentaNYL citrate 100 MCG/2 ML VIAL ONE (10:53)
[2021-08-14] MEDS ORDERED: HYDROmorphone INJ 2 MG/ML SYR/VIAL ONE (10:53)
[2021-08-14] MEDS ORDERED: DEXAMETHASONE SOD INJ 4 MG/ML VIAL ONE (10:54)
[2021-08-14] MEDS ORDERED: ONDANSETRON INJ 2 MG/ML 2 ML VIAL ONE (10:57)
[2021-08-14] MEDS ORDERED: ROCURONIUM BROMIDE 10 MG/ML 5 ML VIAL IV ONE ×8 (10:57→13:16)
[2021-08-14] MEDS ORDERED: SUGAMMADEX SODIUM 200 MG/2 ML VIAL IV ONE (11:01)
[2021-08-14] MEDS ORDERED: FAMOTIDINE/PF 20 MG/2 ML VIAL IV ONE (11:02)
[2021-08-14] MEDS ORDERED: SCOPOLAMINE 1 MG TDSY TD ONE (11:09)
[2021-08-14] MEDS ORDERED: ePHEDrine sulfate 50 MG/ML AMP IV PRN (11:16)
[2021-08-14] MEDS ORDERED: ONDANSETRON INJ 2 MG/ML 2 ML VIAL IV PRN ×2 (11:16→15:00)
[2021-08-14] MEDS ORDERED: ATROPINE SULFATE 0.1 MG/ML 10ML SYR IV PRN (11:16)
[2021-08-14] MEDS ORDERED: FLOSEAL HEMOSTATIC MATRIX 10ML TOP ONE (12:06)
[2021-08-14] MEDS ORDERED: METOCLOPRAMIDE HCL INJ 5 MG/ML 2 ML VIAL ONE (12:10)
[2021-08-14] MEDS ORDERED: LIDOCAINE 2% 2 ML VIAL/AMP(20MG/ML) INFIL ONE (12:10)
[2021-08-14] MEDS ORDERED: PROPOFOL IV EMULSION 10 MG/ML 20 ML VIAL IV ONE (12:10)
[2021-08-14] MEDS ORDERED: ePHEDrine sulfate 50 MG/ML AMP ONE (12:11)
[2021-08-14] MEDS ORDERED: WATER, STERILE FOR INJ 10 ML VIAL ONE (12:11)
[2021-08-14] MEDS ORDERED: PHENYLEPHRINE 100MCG/ML 5ML SYR ONE (12:11)
[2021-08-14] MEDS ORDERED: SURGICEL ABSORB HEMOSTAT 2IN X 14IN TOP ONE (13:05)
--- NOTE | 2021-08-14 13:20 | Operative Report ---
Post Operative Report Pre & Post Diagnosis Operation Date: 08/14/21 10:40 Pre-Op Diagnosis: Spondylolisthesis L5-S1 with herniated was pulposis Post-Op Diagnosis: Same I identified the patient and participated in the time-out.: Yes Procedure Operation Date: 08/14/21 10:40 Actual Procedures #1 lumbar decompression with bilateral medial facetectomies and foraminotomies L4-5 L5-S1. #2 posterior spinal fusion L5-S1. #3 placed posterior instrumentation L5-S1. #4 interbody fusion L5-S1. #5 placement of a 15 x 26 mm titanium cage at L5-S1. #6 placement locally harvested morselized autograft in the posterior gutters. #7 placement of I factor combined with V toss in the interbody space and posterior lateral gutters. Surgeon Golden Gutierres, DO Spd Tech Bette Osborn Estimated Blood Loss 250 Findings See Below Patient is 5 foot 10 inches tall weighing 104 kg with a BMI in excess of 32. The patient's body habitus did contribute to significant technical difficulty requiring her deepest retractors longus instruments in order to perform his procedure. This had at least 50% increase to the operative time. Specimens None Indications This is a 51-year-old male who presents with persistent decline in status over the past several months with an acute exacerbation recently. He presents with severe right greater than left radiculopathy and progressive foot drop on the right. He has evidence of grade 1-2 spondylolisthesis L5-S1 in addition to this. In light of his progressive deficit and pathology he requires emergent decompression fusion. Description of Procedure Patient was met with identified informed consent obtained. Patient was then taken to the operative suite underwent a patient placed in a prone position on the Jonathan table on top of the Stephen frame. All bony prominences well-padded eyes inspected to ensure no external pressure placed upon the. This point the lumbar spine was prepped and draped in a normal sterile fashion. Sharp dissection with the assistance of Bovie cautery performed down to and exposing the lamina and transverse processes of L5 and the sacral ala bilaterally. Obvious bilateral pars defect identified. A complete laminectomy of L5 partial laminectomy of L4 was performed including bilateral medial facetectomies and foraminotomies addressing severe foraminal disease as well as addressing a large disc herniation on the right. After complete decompression pedicle screws were placed in L5 and S1 levels bilaterally with assistance of fluoroscopy the proper sized mary beth placed. By way of a transforaminal approach on the right a complete discectomy of L5-S1 was performed endplates curetted to subcortical being bone and a 15 x 26 mm titanium cage filled with I factor tapped in position. The rods then compressed locked in final position bilaterally. The transverse processes of L5 and the sacral ala burred to subcortical bleeding bone. I factor combined with Vitoss and locally harvested morselized autograft was placed in the posterior lateral gutters. 15 round SHERITA drain inserted. The incision was then closed with 1 Vicryl fascia 2-0 Vicryl subcutaneously and 4 Monocryl for final skin closure. Steri-Strip sterile dressings placed. Patient will continue PACU stable condition. Please note spinal cord binding was utilized at the procedure no changes noted. Lastly Bette Osborn was present at the entire surgeon while the patient positioning complex portions of the surgery and final skin closure. I attest to the content of the Intraoperative Record and any orders documented therein. Any exceptions are noted below.
[2021-08-14] MEDS: fentaNYL citrate 100 MCG/2 ML VIAL IV PRN ×4 (13:38→13:53)
--- NOTE | 2021-08-14 13:44 | Fluoroscopy Report ---
FL lumbar spine 2-3V CLINICAL HISTORY: L5-S1 DECOMPRESSION/FUSION TECHNIQUE: 2 views were obtained with the C-arm in the OR with the above procedure. Total fluoroscopy time was 27.9 seconds. Total skin dose was 27.33 mGy. Comparison: None available at the time of this dictation. FINDINGS/IMPRESSION: L5-S1 decompression is seen. Please correlate with intraoperative fluoroscopy and operative report. ACT 112: Negative or not required by law. Electronically signed by: Mook Johnson M.D. 08/14/2021 1:43 PM
[2021-08-14] MEDS: HYDROmorphone INJ 1 MG/ML SYRINGE IV PRN ×10 (13:58→21:41)
--- NOTE | 2021-08-14 14:46 | Anesthesiology Progress Note ---
Date of Service August 14, 2021 Anesthesia Post Procedure Vital Signs Vital Signs: Temp Pulse Resp BP Pulse Ox 08/14/21 14:35 99 H 18 122/88 94 08/14/21 14:25 94 H 18 113/85 94 08/14/21 14:15 99 H 18 136/69 95 08/14/21 14:05 102 H 18 113/87 98 08/14/21 13:55 100 H 20 146/82 H 98 08/14/21 13:45 89 20 146/92 H 98 08/14/21 13:35 36.9 C 95 H 20 115/82 100 08/14/21 10:25 36.9 C 64 20 160/93 H 99 08/14/21 07:16 36.6 C 63 20 120/75 100 08/13/21 22:39 36.7 C 75 18 133/87 98 08/13/21 15:09 36.6 C 83 16 150/84 H 97 Pain Intensity Back: Pain Intensity: 8 Transfer of Care Handoff Completed per policy Notes Mental Status: alert / awake / arousable and participated in evaluation Patient Amnestic to Procedure: Yes Nausea / Vomiting: adequately controlled Pain: adequately controlled Airway Patency, RR, SpO2: stable & adequate BP & HR: stable & adequate Hydration State: stable & adequate Anesthetic Complications: no major complications apparent and Pt Satisfied with anesthetic care
[2021-08-14] MEDS ORDERED: MAGNESIUM HYDROXIDE SUSP 30 ML UDC PO PRN (15:00)
[2021-08-14] MEDS ORDERED: HYDROmorphone INJ 1 MG/ML SYRINGE IV PRN (15:00)
[2021-08-14] MEDS ORDERED: LORazepam 0.5 MG/1 ML VIAL IV PRN (15:00)
[2021-08-14] MEDS ORDERED: PROMETHAZINE HCL 12.5 MG in SODIUM CHLORIDE 0.9% 50 ML IV PRN (15:00)
[2021-08-14] MEDS ORDERED: LORazepam 0.5 MG TAB PO PRN (15:00)
[2021-08-14] MEDS ORDERED: hydrOXYzine HCl 25 MG TAB PO PRN (15:00)
[2021-08-14] MEDS ORDERED: METOCLOPRAMIDE HCL INJ 5 MG/ML 2 ML VIAL IV PRN (15:00)
[2021-08-14] MEDS ORDERED: traMADol HCL 50 MG TABLET PO PRN (15:00)
[2021-08-14] MEDS ORDERED: ALUMINUM/MAGNESIUM SUSP 30 ML UDC PO PRN (15:00)
[2021-08-14] MEDS ORDERED: HYDROmorphone INJ 0.5 MG/0.5 ML SYR IV PRN (15:00)
[2021-08-14] MEDS ORDERED: ACETAMINOPHEN 1,000 MG/100 ML VIAL IV PRN (15:00)
[2021-08-14] MEDS ORDERED: ONDANSETRON 4 MG OD TAB PO PRN (15:00)
[2021-08-14] MEDS ORDERED: SOD PHOSPHATE/SOD BIPHOSPHATE ENEMA 132 ML BTL PR PRN (15:00)
[2021-08-14] MEDS ORDERED: bisacodyL 10 MG SUPP PR PRN (15:00)
[2021-08-14] MEDS ORDERED: DO NOT ADMINISTER PNEUMOCOCCAL VACCINE PRN (15:00)
[2021-08-14] MEDS ORDERED: DO NOT ADMINISTER FLU VACCINE PRN (15:00)
[2021-08-14] MEDS ORDERED: FAMOTIDINE 20 MG TAB PO PRN (15:00)
[2021-08-14] MEDS ORDERED: ACETAMINOPHEN 500 MG TAB PO PRN (15:00)
[2021-08-14] MEDS ORDERED: NALOXONE HCL 0.4 MG/1 ML VIAL/CARP IV PRN (15:00)
[2021-08-14] MEDS ORDERED: oxyCODONE HCL IR 5 MG TAB (IMMEDIATE RELEASE) PO PRN (15:00)
[2021-08-14] MEDS ORDERED: diphenhydrAMINE Capsule 25 MG CAP PO PRN (15:00)
[2021-08-14] MEDS ORDERED: COUGH DROP (SUGAR FREE) LOZ 24 LOZ/1 BOX BUCCAL PRN (15:27)
[2021-08-14] MEDS ORDERED: COUGH DROP (SUGAR FREE) LOZ 24 LOZ/1 BOX BUCCAL ONE (15:28)
[2021-08-14] MEDS: LACTATED RINGER'S 1,000 ML IV SCH ×2 (15:42→20:13)
[2021-08-14] MEDS ORDERED: ATIVAN IV ALCOHOL WITHDRAWL IV PRN (16:55)
[2021-08-14] MEDS ORDERED: LORazepam 2 MG/4 ML VIAL IV PRN (16:55)
[2021-08-14] MEDS ORDERED: LORazepam 3 MG/6 ML VIAL IV PRN (16:55)
[2021-08-14] MEDS ORDERED: LORazepam 0.5 MG/1 ML VIAL IV ONE (16:55)
[2021-08-14] MEDS ORDERED: LORazepam 1 MG/2 ML VIAL IV PRN (16:55)
--- NOTE | 2021-08-14 16:59 | Hospitalist Progress Note ---
Date of Service August 14, 2021 Assessment & Plan (1) Intractable low back pain: (2) Lumbar radiculopathy: (3) Spondylolisthesis at L5-S1 level: Plan: 51-year-old male who presented with severe intractable back pain. MRI scan done as outpatient showing disk bulge at L5-S1 and spondylolisthesis of L5 on S1. - POD#0 L5-S1 decompression and fusion - activity and wound care orders as per ortho - pain control with bowel regimen - PT/OT - monitor H/H for acute blood loss anemia and transfuse blood products PRN - EBL 250 cc Alcohol use Patient reports drinking 3 beers a few times per week. On exam, noted to be tremulous, tachycardic, and mildly diaphoretic. May be due to postoperative pain. Will give lorazepam 0.5 mg IV x1 dose Alcohol withdrawal protocol ordered with as needed Ativan. Hold gabapentin for now. DVT prophylaxis Teds/SCDs as per spine Ortho Thank you for this consultation. We will follow the patient with you during their hospital stay. You can reach a member of the [facility] Hospitalist Team 25/03 via the [facility] in [place] [facility]. Admission and Anticipated Discharge Date Admission Date: August 11, 2021 Supervising Physician Co-Signing Physician Notes Pt seen and examined by me, care coordinated with Krysten GRADY, pls refer to her note above for further detail. Pt is currently s/p lumbar surgery, laying in bed, appears uncomfortable, reports back pain. His daughter is present at the bedside. Pt has some R UE tremor, however that was present before as well. He is alert oriented, and answering questions appropriately. Lungs are CTAB, heart sounds regular, mildly tachycardic. Abdomen soft, nontender, nondistended. Pt is able to move lower extremities, no sensory loss noted in lower extremities. Cont. pain control. try small dose ativan (? alcohol abuse), cont. to closely monitor hemodynamic status, and signs of poss. withdrawal. Boubacar Gamez MD Subjective Patient seen and examined. Follow-up for postoperative management s/p back surgery. Patient is tremulous, mildly diaphoretic. Reports postop pain is not controlled yet. Denies abdominal pain or nausea. No chest pain or shortness of breath. Review of Systems Review of Systems: ROS per HPI, all other systems reviewed and negative Physical Exam Constitutional: WD/WN, vitals as above Respiratory: normal respiratory effort, lungs clear to auscultation Cardiovascular: Rate/Rhythm: regular rate and + tachycardic Vessels: normal peripheral pulses Extremities: no edema Gastrointestinal (Abdomen): Percussion/Palpation: abdomen soft; abdomen nontender Musculoskeletal: S/p back surgery, drain in place draining bloody drainage, strength strong and equal BLE Skin: no rashes, warm and dry Neurologic: no focal motor deficits Motor/Sensory: + tremor (With outstretched hands) Psychiatric: A+Ox3, euthymic affect Results & Data Results & Data ([facility]) Vital Signs (Past 12 Hours) Vital Signs Temp Pulse Resp BP BP Pulse Ox 08/14/21 16:05 112 H 12 104/74 97 08/14/21 15:30 36.7 C 118 H 16 127/84 96 08/14/21 15:00 36.7 C 111 H 18 140/91 95 08/14/21 14:45 36.4 C L 95 H 18 116/84 95 08/14/21 14:35 99 H 18 122/88 94 08/14/21 14:25 94 H 18 113/85 94 08/14/21 14:15 99 H 18 136/69 95 08/14/21 14:05 102 H 18 113/87 98 08/14/21 13:55 100 H 20 146/82 H 98 08/14/21 13:45 89 20 146/92 H 98 08/14/21 13:35 36.9 C 95 H 20 115/82 100 08/14/21 10:25 36.9 C 64 20 160/93 H 99 08/14/21 07:16 36.6 C 63 20 120/75 100 Laboratory Results Short CBC 08/14/21 Range/Units 06:15 WBC 8.52 (4.8-10.8) K/uL Hgb 14.8 (14.0-18.0) g/dL Hct 43.8 (42-52) % Plt Count 164 (130-400) K/uL [facility] 08/14/21 06:15 Sodium 141 Potassium 3.8 Chloride 109 H Carbon Dioxide 28 BUN 14 Creatinine 1.03 Glucose 109 H Calcium 7.9 L
[2021-08-14] MEDS: ACETAMINOPHEN 1,000 MG/100 ML VIAL IV PRN (17:07)
[2021-08-14] MEDS: THIAMINE HCL 100 MG TAB PO SCH (17:53)
[2021-08-14] MEDS: FOLIC ACID 1 MG TAB PO SCH (17:53)
[2021-08-14] MEDS: ceFAZolin 2000MG 2,000 MG/15 ML SYR IV SCH (20:10)
[2021-08-14] MEDS: DOCUSATE SODIUM/SENNA 50/8.6MG TAB PO SCH (20:16)
[2021-08-15] MEDS: HYDROmorphone INJ 1 MG/ML SYRINGE IV PRN ×2 (01:11→03:58)
[2021-08-15] MEDS: LACTATED RINGER'S 1,000 ML IV SCH (02:48)
[2021-08-15] MEDS: ceFAZolin 2000MG 2,000 MG/15 ML SYR IV SCH (04:00)
[2021-08-15] MEDS: LORazepam 0.5 MG TAB PO PRN ×2 (04:02→20:25)
[2021-08-15] MEDS: POLYETHYLENE (MIRALAX) 17 GM PACK PO SCH ×2 (06:08→12:17)
[2021-08-15 06:56] LABS: Basophils # (auto) 0.01 K/uL (0-0.2); Basophils % (auto) 0.1 %; Immature Granulocytes # (auto) 0.06 K/uL (0.00-0.02); Immature Granulocytes % (auto) 0.4 %; Lymphocytes # (auto) 1.65 K/uL (1.2-3.4); Mean Corpuscular Hemoglobin 30.4 pg (25-34); Mean Corpuscular Hgb Conc 34.2 g/dL (32-36); Mean Platelet Volume 11.3 fL (7.4-10.4); Monocytes % (auto) 13.3 %; Neutrophils # (auto) 12.57 K/uL (1.4-6.5); Neutrophils % (auto) 76.2 %; Platelet Count 228 K/uL (130-400); RDW Standard Deviation 41.6 fL (36.4-46.3); Red Blood Count 4.27 M/uL (4.7-6.1); White Blood Count 16.49 K/uL (4.8-10.8)
[2021-08-15] MEDS: oxyCODONE HCL IR 5 MG TAB (IMMEDIATE RELEASE) PO PRN ×4 (07:25→20:25)
[2021-08-15] MEDS: FOLIC ACID 1 MG TAB PO SCH (07:26)
[2021-08-15] MEDS: THIAMINE HCL 100 MG TAB PO SCH (07:26)
[2021-08-15 07:30] LABS: BUN Creatinine Ratio 13.4 (10-20); Calcium 8.5 mg/dl (8.5-10.1); Creatinine Clr Calc Pharmacy 100.9 ml/min; Est GFR (Non-African American) 81.1 ml/min; Magnesium 2.1 mg/dl (1.8-2.4)
[2021-08-15 07:32] LABS: Phosphorus 3.4 mg/dl (2.5-4.9)
--- NOTE | 2021-08-15 08:25 | Orthopedic Progress Note ---
Date of Service August 15, 2021 Assessment & Plan (1) Lumbar radiculopathy: Plan: At this time continue physical therapy monitor SHERITA output anticipate possible discharge home tomorrow. Admission and Anticipated Discharge Date Admission Date: August 11, 2021 Subjective Back pain is controlled leg symptoms markedly improved Physical Exam Physical Exam: Patient is in the chair at the bedside. He is able to stand and ambulate without difficulty. Strength testing. Results & Data ([facility]) Vital Signs (Past 12 Hours) Vital Signs Temp Pulse Resp BP Pulse Ox 08/15/21 07:58 36.6 C 81 20 122/75 98 08/15/21 02:48 36.7 C 80 16 118/67 97 08/14/21 22:55 36.6 C 84 16 117/69 96
[2021-08-15] MEDS: dexAMETHasone 8 MG in SYRINGE 0 ML IV SCH (10:21)
--- NOTE | 2021-08-15 16:29 | Hospitalist Progress Note ---
Date of Service August 15, 2021 Assessment & Plan (1) Intractable low back pain: (2) Lumbar radiculopathy: (3) Spondylolisthesis at L5-S1 level: Plan: 51-year-old male who presented with severe intractable back pain. MRI scan done as outpatient showing disk bulge at L5-S1 and spondylolisthesis of L5 on S1. - POD#1 L5-S1 decompression and fusion - activity and wound care orders as per ortho - pain control with bowel regimen - PT/OT - monitor H/H for acute blood loss anemia and transfuse blood products PRN - EBL 250 cc, drain output 287 cc to date - Hgb 13.0 (preop 14.8) Alcohol use Patient reports drinking 3 beers a few times per week. Postoperatively, patient was noted to be tremulous, tachycardic, and mildly diaphoretic. Received lorazepam 0.5 mg IV x1 dose with improvement in symptoms. No further signs of alcohol withdrawal. Patient reports a chronic tremor of the RUE due to previous crush injury. Alcohol withdrawal protocol ordered with as needed Ativan. Hold gabapentin for now. DVT prophylaxis Teds/SCDs as per spine Ortho Thank you for this consultation. We will follow the patient with you during their hospital stay. You can reach a member of the [facility] Hospitalist Team 25/03 via the [place] Hospitalist role in [place] Text. Admission and Anticipated Discharge Date Admission Date: August 11, 2021 Supervising Physician Co-Signing Physician Notes Pt seen and examined by me, care coordinated with Krysten GRADY, pls refer to her note above for further detail. Pt is s/p lumbar surgery yesterday, currently laying in bed in NAD but also seen ambulating in hallways w/o difficulty. Pt reports back pain but leg discomfort is much improved and he can walk w/o difficulty. Pt is alert oriented, and answering questions appropriately. Lungs are CTAB, heart sounds regular. Abdomen soft, nontender, nondistended. Pt is able to move lower extremities, no sensory loss noted in lower extremities. Cont. pain management. Monitor hemodynamic status and H&H. Boubacar Gamez MD Subjective Patient seen and examined. Follow-up for medical management s/p back surgery. Patient reports feeling improved today. Pain mostly controlled. Ambulating in the halls independently. Denies abdominal pain and nausea. + BM, urinating without difficulty. No chest pain or shortness of breath. Review of Systems Review of Systems: ROS per HPI, all other systems reviewed and negative Physical Exam Constitutional: no acute distress Resting in bed Respiratory: normal respiratory effort, lungs clear to auscultation Cardiovascular: Rate/Rhythm: regular rate and regular rhythm Extremities: no edema Gastrointestinal (Abdomen): Percussion/Palpation: abdomen soft; abdomen nontender Musculoskeletal: S/p back surgery, drain in place draining serosanguineous drainage, pedal pushes and pulls strong bilaterally Skin: no rashes, warm and dry Neurologic: no focal motor deficits Psychiatric: A+Ox3, euthymic affect Results & Data Results & Data ([facility]) Vital Signs (Past 12 Hours) Vital Signs Temp Pulse Resp BP Pulse Ox 08/15/21 15:13 36.9 C 84 20 129/74 96 08/15/21 11:15 36.6 C 87 16 105/61 92 08/15/21 07:58 36.6 C 81 20 122/75 98 Laboratory Results Short CBC 08/15/21 Range/Units 05:47 WBC 16.49 H (4.8-10.8) K/uL Hgb 13.0 L (14.0-18.0) g/dL Hct 38.0 L (42-52) % Plt Count 228 (130-400) K/uL BMP 08/15/21 05:47 Sodium 136 Potassium 4.0 Chloride 102 Carbon Dioxide 29 BUN 14 Creatinine 1.07 Glucose 113 H Calcium 8.5
[2021-08-15] MEDS: DOCUSATE SODIUM/SENNA 50/8.6MG TAB PO SCH (20:26)
[2021-08-16] MEDS: LORazepam 0.5 MG TAB PO PRN (00:32)
[2021-08-16] MEDS: oxyCODONE HCL IR 5 MG TAB (IMMEDIATE RELEASE) PO PRN ×3 (00:32→09:56)
[2021-08-16] MEDS: FOLIC ACID 1 MG TAB PO SCH (07:51)
[2021-08-16] MEDS: THIAMINE HCL 100 MG TAB PO SCH (07:51)
[2021-08-16] MEDS: dexAMETHasone 8 MG in SYRINGE 0 ML IV SCH (07:51)
[2021-08-16 08:26] LABS: Hematocrit (blood only) 36.8 % (42-52); Hemoglobin 12.7 g/dL (14.0-18.0); Mean Corpuscular Hemoglobin 30.8 pg (25-34); Mean Corpuscular Hgb Conc 34.5 g/dL (32-36); Mean Corpuscular Volume 89.3 fL (80-100); Mean Platelet Volume 10.9 fL (7.4-10.4); Platelet Count 216 K/uL (130-400); RDW Standard Deviation 42.2 fL (36.4-46.3); Red Blood Count 4.12 M/uL (4.7-6.1); White Blood Count 18.46 K/uL (4.8-10.8)
--- NOTE | 2021-08-16 08:40 | Discharge Summary ---
Date of Service August 16, 2021 Admission HPI Per Admitting Provider This is a 51-year-old male that is been struggling for several months with significant bilateral buttock and leg pain right greater than left. He undergone extensive work-up regarding hip pathology this was determined to be benign. He ultimately underwent an MRI of the lumbar spine does demonstrate evidence of spondylolisthesis L5-S1 with disc herniation on the right contributing to severe neural compression and radiculopathy. He is quite uncomfortable. Narcotic pain medication providing little to no relief. No improvement physical therapy. He cannot complete his activities of daily living: For short distances secondary to severe radiculopathy. Principal Diagnosis Lumbar spinal stenosis spondylolisthesis and hernia nucleus pulposus L5-S1 Discharge Data Allergies Allergy/AdvReac Type Severity Reaction Status Date / Time No Known Allergies Allergy Verified 08/11/21 15:24 Consultations 08/11/21 20:47 Consult Internal Medicine Routine Procedures Performed Operation Date: 08/14/21 10:40 Actual Procedures p L5-S1 Lumbar Decompression and Fusion with Application of IFactor Bone Graft and Spinal Cord Monitoring(Not Applicable) - Golden Gutierres DO Ordered Studies 08/14/21 [place] lumbar spine 2-3V Routine Hospital Course (1) Spondylolisthesis at L5-S1 level: Patient was admitted with severe back and leg pain with progressive weakness. He underwent lumbar decompression fusion the following day tolerated so was taken to orthopedic floor. Postop day #1 pain was markedly improved. Is ambulating well. Progressive postop day #2. SHERITA drain decreasing probably. Strength improving. Pain well controlled. Subsequent discharge home. Discharge orders instructions from the chart for further review. Total Time Total Time Spent Total Time Spent (In Minutes): 20 minutes Discharge Plan Discharge Items Patient Disposition: Home - Self-Care Reason For Visit: SEVERE BACK/HIP PAIN,NUMBNESS,URINATION PROBS Discharge Diagnosis: Lumbar spinal listhesis with her nucleus pulposus L5-S1 Activity: As commented below Non-emergency contact: Primary Care Provider Call non-emergency contact if: you have any medication questions Follow-up/Referrals: PCP,NO [Primary Care Provider] - Diet: Regular Addtl Attending Provider Instructions: ACTIVITY RECOMMENDATIONS: SELF CARE INSTRUCTIONS AFTER THORACIC/LUMBAR FUSIONS 1. You may walk to your tolerance. It is good exercise for your legs and back. Expect some back and intermittent leg aches and pains. 2. You may perform "counter-top" level activities (make a sandwich, julia with a project, etc.). 3. No bending or lifting of more than 10 pounds or back twisting of any nature (roll like a log when turning in bed). 4. You may ride in a car for 20-30 minutes at a time. No driving until after your first visit with your doctor. 5. Frequent changes of position and restricting sitting to 30 minutes at a time will help limit the amount of back spasms and stiffness you may experience. 6. You may discontinue the use of ambulatory aids (cane, crutches, etc.) once your strength and confidence allow. 7. You may mulling machine operator the shower and let water strike your incision when you arrive home at least once daily. Do not take a tub bath, sit in a hot tub or go into a swimming pool until after your first recheck in the office. SPECIAL CARE INSTRUCTIONS: VERY IMPORTANT TO READ AND REVIEW A. Your surgical incision has been closed with a cosmetic suture under the skin that will dissolve in about 6 weeks. In 14 days, you can use a pair of clean scissors and cut the suture that is left outside of the skin at the ends of your incision. 1. The small skin tapes can be removed 7 days after surgery if they have not fallen off by that point. 2. You may keep the wound open to air as much as possible to promote healing after post-op day number 5 unless told otherwise by your doctor. 3. If you think the wound looks like it is becoming infected (redness or worsening drainage) and/or you are experiencing fever, chill or worsening back pain and muscle spasms, contact the office so that we may evaluate you as soon as possible. B. Complications are uncommon, but please contact us if you have any signs or symptoms of: 1. wound infection (fever higher than 102.5 degrees F, redness, separation of wound, drainage, or increasing pain from the incision) 2. blood clots in legs (pain, swelling, redness and warmth in legs) 3. urinary tract infection (fever higher than 102.5 degrees F, burning upon urination or increased frequency of urination) 4. nerve problems (inability to walk on your toes or heels, numbness, loss of bowel or bladder control) 5. any other symptoms that concern you C. Please call the office at if you have any concerns or questions about your operation or recovery. D. No smoking! Smoking drastically decreases the chance of a solid fusion. E. Do not take any anti-inflammatory medications (Indocin, Advil, Motrin, Aspirin, Naprosyn, etc.) as these may inhibit the chance of a solid fusion. Tylenol is okay to take for pain. MANAGING PAIN AFTER SPINAL SURGERY 1. Narcotic medication is intended for short-term use and will be provided for surgical pain. Surgical pain usually lasts for a period of 4-6 weeks. Narcotic medication includes Percocet, Vicodin, Darvocet, Tylenol #3 or Lortab. 2. Longer-term pain is more appropriately treated with non-narcotic medication such as Tylenol ES. 3. Muscle spasm is not appropriately treated with narcotics. Muscle relaxers such as Soma, Flexeril or Skelaxin can be used along with Tylenol ES. 4. Remember that we all live with some "aches and pains". This is not unusual or uncommon after an injury or as we get older. a. Back pain is expected and may include muscle spasms for 4 to 6 weeks after surgery. The pain should gradually improve. If the pain worsens for no apparent reason, please contact the office. b. Intermittent leg pain may also be experienced and should not be concerned about unless it worsens for no apparent reason. If so, please contact the office. 5. We will provide appropriate medication within the normal guidelines of their prescribed use. We will also be very cautious and aware of potential abuse and extended duration of patients' medication needs. a. Pain medications are for your comfort and to assist with sleep and rest so that the tissue can heal. They are not provided in order to return to normal activity and should not be used through the day. To do so or worsening pain at night can result from ongoing tissue damage and development of tolerance to the prescribed medicine. 6. Please allow 2-3 days to process refills. Prescriptions will not be mailed but must be picked up at the office. FOLLOW UP VISIT: Keep your scheduled follow-up appointment. Any questions, please call the office at . Pending Studies at Discharge: No Stand-Alone Forms: My [facility], Smoking Cessation Medications and DC Order Prescriptions: New tramadol 50 mg tablet 50 mg PO Q6H PRN (Reason: pain, moderate) Qty: 30 RF: 0 oxycodone 5 mg tablet 5 mg PO Q6H PRN (Reason: pain, severe) Qty: 30 RF: 0 Discontinued cyclobenzaprine 10 mg tablet 10 mg PO TID PRN (Reason: spasms) Qty: 15 RF: 0 Discharge Orders: Discharge Order (Routine); Ordered 08/16/21 Ordered By: Golden Gutierres Admission Data Admit Date/Time: 08/11/21 14:43 Attending Provider: Golden Gutierres Admit Provider: Golden Gutierres Primary Care Provider: PCP,NO Other Providers: Todd Gamez ; Phillip El
== END 2021-08-16 10:45 | disposition home or self-care (01) | DRG 455 ==
LOC: ED 12:03 → 3E 14:43